=== PATIENT | male | born 1960 | race Caucasian/White ===

== ENCOUNTER 2018-10-02 15:37 | Outpatient (CLI) | payer OTHER ==
--- NOTE | 2018-10-02 17:11 | RAD ---
PA AND LATERAL VIEWS CHEST: Date: 10/02/18 HISTORY: Epigastric pain. Chest pain. FINDINGS: The heart size is normal. The lungs are expanded without focal areas of consolidation, pneumothoraces , or pleural effusions. There are postop changes of metallic hardware in the lower cervical spine. IMPRESSION: No radiographic evidence of acute cardiopulmonary process. POS: OFF
== END 2018-10-02 15:38 | disposition home or self-care (01) ==
LOC: NAV RAD 15:37
PROVIDERS: ATTEND Family Medicine
DX: R07.1 Chest pain on breathing (principal); R10.13 Epigastric pain
CPT/HCPCS: 71046

== ENCOUNTER 2018-10-03 08:06 | Outpatient (CLI) | payer OTHER ==
--- NOTE | 2018-10-03 08:58 | ULT ---
ULTRASOUND ABDOMEN: HISTORY: Abdominal pain FINDINGS: The liver, spleen and right kidney are normal. No shadowing gallstones, gallbladder wall thickening o r pericholecystic fluid is seen. There is a 6 mm sludgeball versus polyp in the gallbladder. The pancreas is not well visualized due to overlying bowel gas. A 1.3 cm cyst is seen in the left kidney. There is a questionable 4 mm shadowing calculus in the left kidney. The visualized portions of the aorta and IVC appear normal. The common duct measures 6mm in diameter. No free fluid is seen. IMPRESSION: 1. Sludge ball versus 6 mm gallbladder polyp. Surgical consultation is recommended 2. Left renal cyst. 3. Probable nonobstructing 4 mm left renal calculus.
== END 2018-10-03 08:07 | disposition home or self-care (01) ==
LOC: NAV ULT 08:06
PROVIDERS: ATTEND Family Medicine
DX: R10.13 Epigastric pain (principal); N28.1 Cyst of kidney, acquired
CPT/HCPCS: 76700

== ENCOUNTER 2018-11-26 09:25 | Outpatient (CLI) | payer OTHER, SELFPAY ==
[2018-11-26 10:08] LABS: ALT (SGPT) 43 U/L (8-55); AST (SGOT) 26 U/L (5-34); Alkaline Phosphatase 631 U/L (40-150); Anion Gap 27 mmol/L (10-20); BUN (Urea Nitrogen) 17 mg/dL (8.4-25.7); Bilirubin, Total 0.4 mg/dL (0.2-1.2); Calc. Creatinine Clearance 0 mL/min (70-130); Calcium 11.3 mg/dL (7.8-10.44); Carbon Dioxide 15 mmol/L (22-29); Chloride 95 mmol/L (98-107); Estimated GFR-MDRD 62; Globulin 3.3 g/dL (2.4-3.5); Glucose 395 mg/dL (70-105); Potassium 5.9 mmol/L (3.5-5.1); Protein, Total 7.3 g/dL (6.0-8.3); Sodium 131 mmol/L (136-145)
[2018-11-26 10:19] LABS: Band 3 % (5-11); Hemoglobin 13.9 g/dL (14.0-18.0); Lymphocytes 9 % (21-51); MDiff Complete? YES; Mean Corpuscular HGB CONC 32.8 g/dL (32.0-36.0); Mean Corpuscular Hemoglobin 27.9 pg (27.0-31.0); Mean Corpuscular Volume 85.1 fL (78.0-98.0); Mean Platelet Volume 6.8 fL (7.4-10.4); Monocytes 5 % (0-10); Neutrophil 83 % (42-75); Platelet Count 259 thou/uL (130-400); Platelet Morphology Comment Appears Adequate; Red Blood Cell (RBC) Count 4.98 mill/uL (4.70-6.10); White Blood Cell (WBC) Count 13.7 thou/uL (4.8-10.8)
[2018-11-26 10:31] LABS: Thyroid Stimulating Hormone Less than 0.0025 uIU/mL (0.35-4.94)
[2018-11-26 12:13] LABS: Free T4 (Free Thyroxine) 1.22 ng/dL (0.70-1.48)
== END 2018-11-26 09:26 | disposition home or self-care (01) ==
LOC: NAV LAB 09:25
PROVIDERS: ATTEND Nurse Practitioner Adult Health
DX: E05.90 Thyrotoxicosis, unspecified without thyrotoxic crisis or storm (principal); R53.83 Other fatigue; R63.4 Abnormal weight loss
CPT/HCPCS: 36415; 80053; 84439; 84443; 84481; 85007; 85027